=== PATIENT | female | born 1985 | race Caucasian/White ===

== ENCOUNTER 2019-04-25 08:41 | Emergency (ER) | payer BC ==
--- NOTE | 2019-04-25 08:52 | EDM.PDOC ---
ED HPI GENERAL MEDICAL PROBLEM - General Stated Complaint: HURT RT HAND Time Seen by Provider: 04/25/19 08:51 Source of Information: Reports: Patient - History of Present Illness INITIAL COMMENTS - FREE TEXT/NARRATIVE: HISTORY AND PHYSICAL: History of present illness: []Patient was walking a dog prior to arrival, the leash was wrapped around her right wrist which wrapped around a door frame as the dog accepted the home she now complains of right wrist pain, it appears that she may have had a hyperextension injury from the description No fever nausea vomiting chills sweats no chest pain shortness breath headache dizziness palpitation no bowel or urine symptoms Review of systems: As per history of present illness and below otherwise all systems reviewed and negative. Past medical history: As per history of present illness and as reviewed below otherwise noncontributory. Surgical history: As per history of present illness and as reviewed below otherwise noncontributory. Social history: No reported history of drug or alcohol abuse. Family history: As per history of present illness and as reviewed below otherwise noncontributory. Physical exam: HEENT: Atraumatic, normocephalic, pupils reactive, negative for conjunctival pallor or scleral icterus, mucous membranes moist, throat clear, neck supple, nontender, trachea midline. Lungs: Clear to auscultation, breath sounds equal bilaterally, chest nontender. Heart: S1S2, regular, negative for clicks, rubs, or JVD. Abdomen: Soft, nondistended, nontender. Negative for masses or hepatosplenomegaly. Negative for costovertebral tenderness. Pelvis: Stable nontender. Genitourinary: Deferred. Rectal: Deferred. Extremities: Atraumatic, negative for cords or calf pain. Neurovascular unremarkable. Right upper extremity shoulder elbow on affected tender with mild swelling about the wrist no open lesion using entire limb neurovascularly intact Neuro: Awake, alert, oriented. Cranial nerves II through XII unremarkable. Cerebellum unremarkable. Motor and sensory unremarkable throughout. Exam nonfocal. Diagnostics: []Right wrist 3 views Therapeutics: []Rest ice ibuprofen Splint Impression: [Right wrist injury ] Definitive disposition and diagnosis as appropriate pending reevaluation and review of above. right wrist Pain Score (Numeric/FACES): 7 - Related Data Allergies Allergy/AdvReac Type Severity Reaction Status Date / Time No Known Allergies Allergy Verified 04/25/19 08:58 Home Meds: Home Meds . [No Known Home Meds] 04/25/19 [History] ED ROS GENERAL - Review of Systems Review Of Systems: See Below ED EXAM, GENERAL - Physical Exam Exam: See Below Course - Vital Signs Last Recorded V/S: Last Vital Signs Temp 97.7 F 04/25/19 08:58 Pulse 83 04/25/19 08:58 Resp 18 04/25/19 08:58 BP 139/91 H 04/25/19 08:58 Pulse Ox 98 04/25/19 08:58 - Orders/Labs/Meds Orders: Active Orders 24 hr Category Date Time Status Wrist Comp Min 3V Rt [CR] Stat Exams 04/25/19 08:46 Taken Departure - Departure Time of Disposition: 09:36 Disposition: Home, Self-Care 01 Condition: Good Clinical Impression: Right wrist injury - Discharge Information Referrals: PCP,None [Primary Care Provider] - Additional Instructions: Rest Ice 20 minute interva 3 times daily as needed Ibuprofen 400 mg 3 times daily 7-10 days Splint for comfort follow-up with orthopedist or primary care, call phone number below to schedule appropriate follow-up [facility] [address] [place] [address] [facility] [address] [place] [address], [address] [place] [address] my orthopedic The following information is given to patients seen in the emergency department who are being discharged to home. This information is to outline your options for follow-up care. We provide all patients seen in our emergency department with a follow-up referral. The need for follow-up, as well as the timing and circumstances, are variable depending upon the specifics of your emergency department visit. If you don't have a primary care physician on staff, we will provide you with a referral. We always advise you to contact your personal physician following an emergency department visit to inform them of the circumstance of the visit and for follow-up with them and/or the need for any referrals to a consulting specialist. The emergency department will also refer you to a specialist when appropriate. This referral assures that you have the opportunity for follow-up care with a specialist. All of these measure are taken in an effort to provide you with optimal care, which includes your follow-up. Under all circumstances we always encourage you to contact your private physician who remains a resource for coordinating your care. When calling for follow-up care, please make the office aware that this follow-up is from your recent emergency room visit. If for any reason you are refused follow-up, please contact the [facility] emergency department at and asked to speak to the emergency department charge nurse. - My Orders Last 24 Hours: My Active Orders 04/25/19 08:46 Wrist Comp Min 3V Rt [CR] Stat - Assessment/Plan Last 24 Hours: My Active Orders 04/25/19 08:46 Wrist Comp Min 3V Rt [CR] Stat
[2019-04-25] MEDS ORDERED: Ibuprofen 400 MG Tab PO ONE (09:37)
--- NOTE | 2019-04-25 09:51 | CR ---
INDICATION: Right wrist pain today after walking dog. TECHNIQUE: Three-views of the right wrist. FINDINGS: The bones of the right wrist are intact. No fracture or dislocation. No destructive or osteolytic lesions. No radiopaque foreign bodies. IMPRESSION: No acute bone or joint abnormality. Dictated by Matt David MD @ Apr 25 2019 9:47AM Signed by Dr. Matt David @ Apr 25 2019 9:49AM
== END 2019-04-25 09:42 | disposition home or self-care (01) ==
LOC: MW.ED 08:41
DX: S69.91XA Unspecified injury of right wrist, hand and finger(s), initial encounter (principal); X50.9XXA Other and unspecified overexertion or strenuous movements or postures, initial encounter
CPT/HCPCS: 73110-26-RT; 73110-RT; 99282; 99283-25

== ENCOUNTER 2021-09-12 06:43 | Day surgery (SDC) | payer BC ==
[2021-09-10 09:29] LABS: BLOOD UREA NITROGEN,BUN 12 mg/dL (7.0-18.0); CARBON DIOXIDE,CO2 29.7 mmol/L (21.0-32.0); CHLORIDE,CL 104 mmol/L (98-107); GLUCOSE RANDOM 95 mg/dL (74-106); POTASSIUM,K 4.5 mmol/L (3.5-5.1); SODIUM,NA 142 mmol/L (136-145)
[~2021-09-12 06:43] MED LIST: Lactated Ringers 1,000 ML IV SCH; Sodium Chloride 0.9% 10 ML SDV IV PRN; Sodium Chloride 0.9% 10 ML Syringe FLUSH PRN; Sodium Chloride 0.9% 2.5 ML Syringe FLUSH PRN; ceFAZolin 2 GM in Premix Bag 1 BAG IV ONE
[2021-09-12] MEDS ORDERED: Midazolam 1 MG/ML 2 ML SDV ONE (06:48)
[2021-09-12] MEDS ORDERED: Propofol 200 MG/20 ML SDV ONE (06:48)
[2021-09-12] MEDS ORDERED: fentaNYL 250 MCG/5 ML SDV ONE (06:48)
[2021-09-12] MEDS ORDERED: Dexamethasone 4 MG/ML 5 ML MDV ONE (06:52)
[2021-09-12] MEDS ORDERED: Ondansetron 4 MG/2 ML SDV ONE (06:52)
[2021-09-12] MEDS ORDERED: Scopolamine 1.5 MG Transdermal Patch ONE (06:58)
[2021-09-12] MEDS ORDERED: Albuterol 0.083% 2.5 MG/3 ML Neb Soln NEB PRN (07:22)
[2021-09-12] MEDS ORDERED: fentaNYL 100 MCG/2 ML SDV IVPUSH PRN (07:22)
[2021-09-12] MEDS ORDERED: Metoclopramide 10 MG/2 ML SDV IVPUSH PRN (07:22)
[2021-09-12] MEDS ORDERED: Naloxone 0.4 MG/ML SDV IVPUSH PRN (07:22)
[2021-09-12] MEDS ORDERED: Morphine 2 MG/ML SYRINGE IVPUSH PRN ×2 (07:22→09:31)
[2021-09-12] MEDS ORDERED: Ondansetron 4 MG/2 ML SDV IVPUSH PRN ×2 (07:22→09:31)
--- NOTE | 2021-09-12 07:22 | PCM.PREANE ---
Preanesthetic Assessment - Anesthesia/Transfusion/Family Hx Anesthesia History: Prior Anesthesia Without Reaction Family History of Anesthesia Reaction: No Transfusion History: No Prior Transfusion(s) - Review of Systems General: No Symptoms Pulmonary: No Symptoms Cardiovascular: No Symptoms Gastrointestinal: No Symptoms Neurological: No Symptoms Other: Reports: Depression, Anxiety - Physical Assessment NPO Status Date: 09/12/21 NPO Status Time: 00:00 Vital Signs: Last Vital Signs Temp 97.9 F 09/12/21 06:57 Pulse 79 09/12/21 06:57 Resp 16 09/12/21 06:57 BP 125/80 09/12/21 06:57 Pulse Ox 98 09/12/21 06:57 Height: 5 ft 4 in Weight: 214 lb ASA Class: 2 Mental Status: Alert & Oriented x3 Airway Class: Mallampati = 2 Dentition: Reports: Normal Dentition Thyro-Mental Finger Breadths: 3 Mouth Opening Finger Breadths: 3 ROM/Head Extension: Full Lungs: Clear to Auscultation, Normal Respiratory Effort Cardiovascular: Regular Rate, Regular Rhythm - Lab Values: Laboratory Last Values WBC 7.17 K/uL (4.0-11.0) 09/10/21 09:00 RBC 4.71 M/uL (4.30-5.90) 09/10/21 09:00 Hgb 14.0 g/dL (12.0-16.0) 09/10/21 09:00 Hct 41.6 % (36.0-46.0) 09/10/21 09:00 MCV 88.3 fL (80.0-98.0) 09/10/21 09:00 MCH 29.7 pg (27.0-32.0) 09/10/21 09:00 MCHC 33.7 g/dL (31.0-37.0) 09/10/21 09:00 RDW Std Deviation 43.4 fl (28.0-62.0) 09/10/21 09:00 RDW Coeff of Shreyas 13 % (11.0-15.0) 09/10/21 09:00 Plt Count 271 K/uL (150-400) 09/10/21 09:00 MPV 9.70 fL (7.40-12.00) 09/10/21 09:00 Nucleated RBC % 0.0 /100WBC 09/10/21 09:00 Nucleated RBCs # 0 K/uL 09/10/21 09:00 Sodium 142 mmol/L (136-145) 09/10/21 09:00 Potassium 4.5 mmol/L (3.5-5.1) 09/10/21 09:00 Chloride 104 mmol/L (98-107) 09/10/21 09:00 Carbon Dioxide 29.7 mmol/L (21.0-32.0) 09/10/21 09:00 BUN 12 mg/dL (7.0-18.0) 09/10/21 09:00 Creatinine 0.7 mg/dL (0.6-1.0) 09/10/21 09:00 Est Cr Clr Drug Dosing 95.94 mL/min 09/10/21 09:00 Estimated GFR (MDRD) > 60.0 ml/min 09/10/21 09:00 Glucose 95 mg/dL (74-106) 09/10/21 09:00 Calcium 8.4 mg/dL (8.5-10.1) L 09/10/21 09:00 HCG, Qual NEGATIVE (NEG) 09/10/21 09:00 Blood Type A NEGATIVE 09/10/21 09:00 Antibody Screen NEGATIVE 09/10/21 09:00 - Allergies Allergies/Adverse Reactions: Allergies Allergy/AdvReac Type Severity Reaction Status Date / Time No Known Allergies Allergy Verified 09/12/21 07:04 - Anesthesia Plan Pre-Op Medication Ordered: Other (Scopolamine) - Acknowledgements Anesthesia Type Planned: General Anesthesia Pt an Appropriate Candidate for the Planned Anesthesia: Yes Alternatives and Risks of Anesthesia Discussed w Pt/Guardian: Yes Pt/Guardian Understands and Agrees with Anesthesia Plan: Yes PreAnesthesia Questionnaire HEENT History: Reports: None Cardiovascular History: Reports: None Respiratory History: Reports: Asthma Other Respiratory History: has not used inhaler for 2 years Gastrointestinal History: Reports: None Genitourinary History: Reports: Urinary Incontinence GENERAL STUDIES PROGRAM CHAIR History: Reports: Musculoskeletal History: Reports: Fracture Other Musculoskeletal History: hx of fx foot Neurological History: Reports: Migraines Other Neuro History: chronic migraines, states hormone related Psychiatric History: Reports: Anxiety Endocrine/Metabolic History: Reports: Obesity/BMI 30+ Hematologic History: Reports: Anemia Immunologic History: Reports: None Oncologic (Cancer) History: Reports: None Dermatologic History: Reports: None - Infectious Disease History Infectious Disease History: Reports: Chicken Pox - Past Surgical History Head Surgeries/Procedures: Reports: None HEENT Surgical History: Reports: Tonsillectomy Cardiovascular Surgical History: Reports: None Respiratory Surgical History: Reports: None GI Surgical History: Reports: None Female Surgical History: Reports: None Endocrine Surgical History: Reports: None Neurological Surgical History: Reports: None Musculoskeletal Surgical History: Reports: None Oncologic Surgical History: Reports: None Dermatological Surgical History: Reports: None - SUBSTANCE USE Tobacco Use Within Last Twelve Months: No Recreational Drug Use History: No - HOME MEDS Home Medications: Home Meds Aspirin/Acetaminophen/Caffeine [Excedrin Migraine Caplet] 1 tab PO ASDIRECTED PRN 09/06/21 [History] Escitalopram Oxalate [Lexapro] 20 mg PO BEDTIME 09/06/21 [History] Iron 65 mg PO DAILY 09/06/21 [History] - CURRENT (IN HOUSE) MEDS Current Meds: Current Medications Lactated Ringer's (Ringers, Lactated) 1,000 mls @ 125 mls/hr IV ASDIRECTED LIDA Last Admin: 09/12/21 07:04 Dose: 125 mls/hr Documented by: Sodium Chloride (Sodium Chloride 0.9% 10 Ml Syringe) 10 ml FLUSH ASDIRECTED PRN PRN Reason: Keep Vein Open Sodium Chloride (Sodium Chloride 0.9% 2.5 Ml Syringe) 2.5 ml FLUSH ASDIRECTED PRN PRN Reason: Keep Vein Open Sodium Chloride (Sodium Chloride 0.9% 10 Ml Sdv) 10 ml IV ASDIRECTED PRN PRN Reason: IV Use Discontinued Medications Dexamethasone (Dexamethasone 4 Mg/Ml 5 Ml Mdv) Confirm Administered Dose 20 mg .ROUTE .STK-MED ONE Stop: 09/12/21 06:53 Fentanyl (Fentanyl 250 Mcg/5 Ml Sdv) Confirm Administered Dose 250 mcg .ROUTE .STK-MED ONE Stop: 09/12/21 06:49 Cefazolin Sodium/Dextrose 2 gm (/ Premix) 50 mls @ 100 mls/hr IV ONETIME ONE Stop: 09/10/21 09:07 Cefazolin Sodium/Dextrose (Ancef 2 Gm/50 Ml) Confirm Administered Dose 50 mls @ as directed .ROUTE .STK-MED ONE Stop: 09/12/21 07:00 Lidocaine HCl (Lidocaine 1% 5 Ml Sdv) Confirm Administered Dose 5 ml .ROUTE .STK-MED ONE Stop: 09/12/21 06:52 Midazolam HCl (Midazolam 1 Mg/Ml 2 Ml Sdv) Confirm Administered Dose 2 mg .ROUTE .STK-MED ONE Stop: 09/12/21 06:49 Ondansetron HCl (Ondansetron 4 Mg/2 Ml Sdv) Confirm Administered Dose 4 mg .ROUTE .STK-MED ONE Stop: 09/12/21 06:53 Propofol (Propofol 200 Mg/20 Ml Sdv) Confirm Administered Dose 200 mg .ROUTE .STK-MED ONE Stop: 09/12/21 06:49 Scopolamine (Scopolamine 1.5 Mg Transdermal Patch) Confirm Administered Dose 1.5 mg .ROUTE .STK-MED ONE Stop: 09/12/21 06:59
[2021-09-12] MEDS ORDERED: Rocuronium Bromide 50 MG/5 ML Syringe ONE (07:34)
[2021-09-12] MEDS ORDERED: Octyl 2-Cyanoacrylate 1 Tube ONE ×2 (07:37→09:51)
[2021-09-12] MEDS ORDERED: Fluorescein 5 ML Vial ONE (07:37)
[2021-09-12] MEDS ORDERED: Sugammadex Sodium 200 MG/2 ML VIAL ONE (08:32)
[2021-09-12] MEDS ORDERED: Glycopyrrolate 0.2 MG/ML SDV ONE (08:32)
[2021-09-12] MEDS ORDERED: Ketorolac 30 MG/ML SDV ONE (08:43)
[2021-09-12] MEDS ORDERED: Ketorolac 30 MG/ML SDV IVPUSH ONE (09:31)
[2021-09-12] MEDS ORDERED: Acetaminophen/oxyCODONE 325-5 MG Tab PO PRN (09:31)
[2021-09-12] MEDS ORDERED: Promethazine 25 MG/ML SDV IM PRN (09:31)
[2021-09-12] MEDS ORDERED: Ketorolac 30 MG/ML SDV IVPUSH PRN (09:31)
--- NOTE | 2021-09-12 09:38 | PCM.OPNOTE ---
- General Post-Op/Procedure Note Date of Surgery/Procedure: 09/12/21 Operative Procedure(s): TVH,TVT and Cystoscopy. Pre Op Diagnosis: Bleeding ,RASHAUN Post-Op Diagnosis: Same Anesthesia Technique: General ET Tube Primary Surgeon: Jacob Anders EBL in mLs: 200 Complications: None Condition: Good Free Text/Narrative:: Intake & Output 09/11/21 09/12/21 09/12/21 22:59 06:59 14:59 Output Total 50 Balance -50
--- NOTE | 2021-09-12 09:48 | PCM.POSTAN ---
POST ANESTHESIA ASSESSMENT - MENTAL STATUS Mental Status: Alert, Oriented - VITAL SIGNS Vital Signs: Last Vital Signs Temp 97.9 F 09/12/21 06:57 Pulse 79 09/12/21 06:57 Resp 16 09/12/21 06:57 BP 125/80 09/12/21 06:57 Pulse Ox 98 09/12/21 06:57 - RESPIRATORY Respiratory Status: Respiratory Rate WNL, Airway Patent, O2 Saturation Stable - CARDIOVASCULAR CV Status: Pulse Rate WNL, Blood Pressure Stable - GASTROINTESTINAL GI Status: No Symptoms - POST OP HYDRATION Hydration Status: Adequate & Stable
--- NOTE | 2021-09-12 09:48 | PCM48HPAN ---
Post Anesthesia Note - EVALUATION WITHIN 48HRS OF ANESTHETIC Vital Signs in Normal Range: Yes Patient Participated in Evaluation: Yes Respiratory Function Stable: Yes Airway Patent: Yes Cardiovascular Function Stable: Yes Hydration Status Stable: Yes Pain Control Satisfactory: Yes Nausea and Vomiting Control Satisfactory: Yes Mental Status Recovered: Yes Vital Signs: Last Vital Signs Temp 97.9 F 09/12/21 06:57 Pulse 79 09/12/21 06:57 Resp 16 09/12/21 06:57 BP 125/80 09/12/21 06:57 Pulse Ox 98 09/12/21 06:57
[2021-09-12] MEDS: HYDROmorphone 1 MG/ML Syringe IVPUSH PRN ×2 (09:49→09:59)
[2021-09-12] MEDS: Acetaminophen/oxyCODONE 325-5 MG Tab PO PRN ×2 (11:48→20:39)
--- NOTE | 2021-09-12 13:18 | OR ---
SURGEON: Jacob Anders MD DATE OF PROCEDURE: 09/12/2021 PREOPERATIVE DIAGNOSES: 1. Menometrorrhagia. 2. Stress urinary incontinence. POSTOPERATIVE DIAGNOSES: 1. Menometrorrhagia. 2. Stress urinary incontinence. OPERATIONS PERFORMED: Total vaginal hysterectomy, bilateral salpingectomy preserving both ovaries, Solyx tension-free vaginal tape, and cystoscopy. PRIMARY SURGEON: Jacob Anders MD PUBLIC EVENTS FACILITIES RENTAL MANAGER: OR tech. ANESTHESIA: General endotracheal intubation, Dr. Manjinder Martinez and nurse wellness consultant. COMPLICATIONS: None. FINDINGS: Uterus is about 10-week size with a few fibroids. INDICATION FOR SURGERY: [place] referred to the admit note. PROCEDURE IN DETAIL: The patient was brought to the OR, properly identified. After adequate level of anesthesia, the patient placed in lithotomy position, was prepped and draped in sterile fashion as usual. A straight catheter was used to empty the bladder and a short weighted speculum placed in the vagina. A single-tooth tenaculum applied to the cervix. The cervix and uterus were pulled downward and forward, and using electrocautery, circular incision in the vaginal mucosa around the cervix was done. The posterior cul-de-sac was entered posteriorly with Junior scissors and the peritoneum and the vagina tacked posteriorly. The uterosacral ligament identified from both sides, clamped with a curved Zeppelin, transected, and suture ligated with 2-0 Vicryl pop-off. The same thing was done with the cardinal ligament and then the round ligament, and then the uterus delivered posteriorly and the superior pedicle clamped with 90-degree Zeppelin, the tubes on both sides included with the specimen, both ovaries preserved, and then the superior pedicle tied first with Endoloop and then a free tie. Inspection of the operative field showed no oozing, no bleeding from all the pedicles. We proceeded to close the vaginal cuff with 2-0 Vicryl interrupted [id number] sutures. Once we did that, then attention was paid to the anterior vaginal wall, and anterior vaginal wall about 1 inch beneath the rectum infiltrated with copious amount of normal saline and opened in the midline with electrocautery and dissected laterally in a tunneling fashion to accommodate the Solyx TVT. The Solyx TVT placed into place with a due amount of tension to elevate the urethrovesical angle. Once that was done, then the anterior incision in the vaginal cuff was closed with 2-0 Vicryl continuous interlocking for hemostasis. While we were doing that, we asked the Anesthesia personnel to give the patient fluorescein and then cystoscopy was performed. The bladder was intact. Both ureteric orifices seen with dye coming from both of them. Thus, the patency of both ureters and the integrity of the bladder confirmed. Once we did that, the procedure ended. The instrument and sponge count was correct. The patient tolerated the procedure well, went to recovery room stable general condition. MARYANN TYLER /[id number]
[2021-09-13] MEDS: Acetaminophen/oxyCODONE 325-5 MG Tab PO PRN (02:54)
[2021-09-13 06:41] LABS: BLOOD UREA NITROGEN,BUN 9 mg/dL (7.0-18.0); CARBON DIOXIDE,CO2 27.8 mmol/L (21.0-32.0); CHLORIDE,CL 104 mmol/L (98-107); GLUCOSE RANDOM 109 mg/dL (74-106); POTASSIUM,K 4.2 mmol/L (3.5-5.1); SODIUM,NA 141 mmol/L (136-145)
--- NOTE | 2021-09-13 09:31 | PCM.SURGPN ---
- General Info Date of Service: 09/13/21 POD#: 1 Functional Status: Reports: Pain Controlled - Review of Systems General: Reports: No Symptoms HEENT: Reports: No Symptoms Pulmonary: Reports: No Symptoms Cardiovascular: Reports: No Symptoms Gastrointestinal: Reports: No Symptoms Genitourinary: Reports: No Symptoms Musculoskeletal: Reports: No Symptoms Skin: Reports: No Symptoms Neurological: Reports: No Symptoms Psychiatric: Reports: No Symptoms - Patient Data Vitals - Most Recent: Last Vital Signs Temp 36.7 C 09/13/21 08:00 Pulse 63 09/13/21 08:00 Resp 14 09/13/21 08:00 BP 126/70 09/13/21 08:00 Pulse Ox 99 09/13/21 08:00 Weight - Most Recent: 97.069 kg I&O - Last 24 Hours: Intake & Output 09/12/21 09/13/21 09/13/21 22:59 06:59 14:59 Intake Total 700 Output Total 600 2000 Balance -600 -1300 Lab Results Last 24 Hrs: Laboratory Results - last 24 hr 09/13/21 09/13/21 Range/Units 05:46 05:46 WBC 11.04 H (4.0-11.0) K/uL RBC 3.96 L (4.30-5.90) M/uL Hgb 11.6 L (12.0-16.0) g/dL Hct 35.5 L (36.0-46.0) % MCV 89.6 (80.0-98.0) fL MCH 29.3 (27.0-32.0) pg MCHC 32.7 (31.0-37.0) g/dL RDW Std Deviation 44.2 (28.0-62.0) fl RDW Coeff of Shreyas 14 (11.0-15.0) % Plt Count 279 (150-400) K/uL MPV 10.00 (7.40-12.00) fL Neut % (Auto) 73.6 (48.0-80.0) % Lymph % (Auto) 19.4 (16.0-40.0) % [place] % (Auto) 6.7 (0.0-15.0) % Eos % (Auto) 0.2 (0.0-7.0) % Baso % (Auto) 0.1 (0.0-1.5) % Neut # (Auto) 8.1 H (1.4-5.7) K/uL Lymph # (Auto) 2.1 (0.6-2.4) K/uL [place] # (Auto) 0.7 (0.0-0.8) K/uL Eos # (Auto) 0.0 (0.0-0.7) K/uL Baso # (Auto) 0.0 (0.0-0.1) K/uL Nucleated RBC % 0.0 /100WBC Nucleated RBCs # 0 K/uL Sodium 141 (136-145) mmol/L Potassium 4.2 (3.5-5.1) mmol/L Chloride 104 (98-107) mmol/L Carbon Dioxide 27.8 (21.0-32.0) mmol/L BUN 9 (7.0-18.0) mg/dL Creatinine 0.8 (0.6-1.0) mg/dL Est Cr Clr Drug Dosing 83.95 mL/min Estimated GFR (MDRD) > 60.0 ml/min Glucose 109 H (74-106) mg/dL Calcium 8.1 L (8.5-10.1) mg/dL Med Orders - Current: Current Medications Lactated Ringer's (Ringers, Lactated) 1,000 mls @ 125 mls/hr IV ASDIRECTED [facility] Last Admin: 09/12/21 07:04 Dose: 125 mls/hr Documented by: Ketorolac Tromethamine (Ketorolac 30 Mg/Ml Sdv) 30 mg IVPUSH Q6H PRN PRN Reason: Pain (severe 7-10) Stop: 09/17/21 09:32 Morphine Sulfate (Morphine 2 Mg/Ml Syringe) 4 mg IVPUSH Q2H PRN PRN Reason: Pain (severe 7-10) Last Admin: 09/12/21 13:43 Dose: 4 mg Documented by: Ondansetron HCl (Ondansetron 4 Mg/2 Ml Sdv) 4 mg IVPUSH Q6H PRN PRN Reason: Nausea/Vomiting Oxycodone/Acetaminophen (Acetaminophen/Oxycodone 325-5 Mg Tab) 1 tab PO Q4H PRN PRN Reason: Pain (moderate 4-6) Last Admin: 09/13/21 07:55 Dose: 1 tab Documented by: Oxycodone/Acetaminophen (Acetaminophen/Oxycodone 325-5 Mg Tab) 2 tab PO Q4H PRN PRN Reason: Pain (moderate 4-6) Last Admin: 09/13/21 02:54 Dose: 2 tab Documented by: Promethazine HCl (Promethazine 25 Mg/Ml Sdv) 25 mg IM Q6H PRN PRN Reason: Nausea/Vomiting Sodium Chloride (Sodium Chloride 0.9% 10 Ml Syringe) 10 ml FLUSH ASDIRECTED PRN PRN Reason: Keep Vein Open Sodium Chloride (Sodium Chloride 0.9% 2.5 Ml Syringe) 2.5 ml FLUSH ASDIRECTED PRN PRN Reason: Keep Vein Open Sodium Chloride (Sodium Chloride 0.9% 10 Ml Sdv) 10 ml IV ASDIRECTED PRN PRN Reason: IV Use Discontinued Medications Albuterol (Albuterol 0.083% 2.5 Mg/3 Ml Neb Soln) 2.5 mg NEB ONETIME PRN PRN Reason: Wheezing Dexamethasone (Dexamethasone 4 Mg/Ml 5 Ml Mdv) Confirm Administered Dose 20 mg .ROUTE .STK-MED ONE Stop: 09/12/21 06:53 Droperidol (Droperidol 5 Mg/2 Ml Sdv) 0.625 mg IVPUSH ONETIME PRN PRN Reason: Nausea/Vomiting Fentanyl (Fentanyl 250 Mcg/5 Ml Sdv) Confirm Administered Dose 250 mcg .ROUTE .STK-MED ONE Stop: 09/12/21 06:49 Fentanyl (Fentanyl 100 Mcg/2 Ml Sdv) 50 mcg IVPUSH Q5M PRN PRN Reason: Pain (mild 1-3) Fluorescein Sodium (Fluorescein 5 Ml Vial) Confirm Administered Dose 5 ml .ROUTE .STK-MED ONE Stop: 09/12/21 07:38 Glycopyrrolate (Glycopyrrolate 0.2 Mg/Ml Sdv) Confirm Administered Dose 0.2 mg .ROUTE .STK-MED ONE Stop: 09/12/21 08:33 Hydromorphone HCl (Hydromorphone 1 Mg/Ml Syringe) 1 mg IVPUSH Q10M PRN PRN Reason: Pain (moderate 4-6) Last Admin: 09/12/21 09:59 Dose: 1 mg Documented by: Cefazolin Sodium/Dextrose 2 gm (/ Premix) 50 mls @ 100 mls/hr IV ONETIME ONE Stop: 09/10/21 09:07 Cefazolin Sodium/Dextrose (Ancef 2 Gm/50 Ml) Confirm Administered Dose 50 mls @ as directed .ROUTE .ST-MED ONE Stop: 09/12/21 07:00 Acetaminophen (Ofirmev 1000 Mg/100 Ml) Confirm Administered Dose 100 mls @ as directed .ROUTE .ST-MED ONE Stop: 09/12/21 08:35 Ketorolac Tromethamine (Ketorolac 30 Mg/Ml Sdv) Confirm Administered Dose 30 mg .ROUTE .ST-MED ONE Stop: 09/12/21 08:44 Ketorolac Tromethamine (Ketorolac 30 Mg/Ml Sdv) 30 mg IVPUSH ONETIME ONE Stop: 09/12/21 09:32 Last Admin: 09/12/21 10:49 Dose: Not Given Documented by: Lidocaine HCl (Lidocaine 1% 5 Ml Sdv) Confirm Administered Dose 5 ml .ROUTE .[facility]-MED ONE Stop: 09/12/21 06:52 Metoclopramide HCl (Metoclopramide 10 Mg/2 Ml Sdv) 10 mg IVPUSH ONETIME PRN PRN Reason: Nausea/Vomiting Midazolam HCl (Midazolam 1 Mg/Ml 2 Ml Sdv) Confirm Administered Dose 2 mg .ROUTE .ST-MED ONE Stop: 09/12/21 06:49 Morphine Sulfate (Morphine 2 Mg/Ml Syringe) 2 mg IVPUSH Q10M PRN PRN Reason: Pain (severe 7-10) Naloxone HCl (Naloxone 0.4 Mg/Ml Sdv) 0.1 mg IVPUSH ASDIRECTED PRN PRN Reason: Respiratory Depression Octyl Cyanoacrylate (Octyl 2-Cyanoacrylate 1 Tube) Confirm Administered Dose 1 applic .ROUTE .ST-MED ONE Stop: 09/12/21 07:38 Octyl Cyanoacrylate (Octyl 2-Cyanoacrylate 1 Tube) Confirm Administered Dose 1 applic .ROUTE .ST-MED ONE Stop: 09/12/21 09:52 Ondansetron HCl (Ondansetron 4 Mg/2 Ml Sdv) Confirm Administered Dose 4 mg .ROUTE .ST-MED ONE Stop: 09/12/21 06:53 Ondansetron HCl (Ondansetron 4 Mg/2 Ml Sdv) 4 mg IVPUSH ONETIME PRN PRN Reason: Nausea/Vomiting Propofol (Propofol 200 Mg/20 Ml Sdv) Confirm Administered Dose 200 mg .ROUTE .STK-MED ONE Stop: 09/12/21 06:49 Rocuronium [place] (Rocuronium [place] 50 Mg/5 Ml Syringe) Confirm Administered Dose 50 mg .ROUTE .STK-MED ONE Stop: 09/12/21 07:35 Scopolamine (Scopolamine 1.5 Mg Transdermal Patch) Confirm Administered Dose 1.5 mg .ROUTE .STK-MED ONE Stop: 09/12/21 06:59 Last Admin: 09/12/21 12:12 Dose: Not Given Documented by: Sugammadex Sodium (Sugammadex Sodium 200 Mg/2 Ml Vial) Confirm Administered Dose 200 mg .ROUTE .STK-MED ONE Stop: 09/12/21 08:33 - Exam Wound/Incisions: Healing Well General: Alert, Oriented HEENT: Pupils Equal Neck: Supple Lungs: Clear to Auscultation, Normal Respiratory Effort Cardiovascular: Regular Rate, Regular Rhythm GI/Abdominal Exam: Normal Bowel Sounds, Soft, Non-Tender, No Organomegaly, No Distention, No Abnormal Bruit, No Mass, Pelvis Stable Extremities: Normal Inspection, Normal Range of Motion, Non-Tender, No Pedal Edema, Normal Capillary Refill Skin: Warm, Dry, Intact Neurological: No New Focal Deficit Psy/Mental Status: Alert, Normal Affect, Normal Mood Sepsis Event Note - Evaluation Sepsis Screening Result: No Definite Risk - Focused Exam Vital Signs: Vital Signs Temp Pulse Resp BP Pulse Ox 09/13/21 08:00 36.7 C 63 14 126/70 99 09/13/21 03:41 36.7 C 83 18 119/56 L 96 09/12/21 23:19 37.3 C 85 16 105/56 L 94 L - Problem List Review Problem List Initiated/Reviewed/Updated: Yes - My Orders Last 24 Hours: Active Orders 24 hr Category Date Time Status Patient Status [ADT] Routine ADT 09/12/21 09:32 Active Antiembolic Devices [RC] PER UNIT ROUTINE Care 09/12/21 09:32 Active Notify Provider Vital Signs [RC] ASDIRECTED Care 09/12/21 09:32 Active Oxygen Therapy [RC] ASDIRECTED Care 09/12/21 09:32 Active RT Incentive Spirometry [RC] Q2HWA Care 09/12/21 09:32 Active Up With Assistance [RC] PER UNIT ROUTINE Care 09/12/21 09:32 Active Up ad Eve [RC] PER UNIT ROUTINE Care 09/12/21 09:32 Active Urinary Catheter Removal [RC] Per Unit Routine Care 09/12/21 09:32 Active Vital Signs [RC] PER UNIT ROUTINE Care 09/12/21 09:32 Active Regular Diet [DIET] Diet 09/12/21 Lunch Active Acetaminophen/oxyCODONE [Percocet 325-5 MG] Med 09/12/21 09:31 Active 1 tab PO Q4H PRN Acetaminophen/oxyCODONE [Percocet 325-5 MG] Med 09/12/21 09:31 Active 2 tab PO Q4H PRN Ketorolac [Toradol] Med 09/12/21 09:31 Active 30 mg IVPUSH Q6H PRN Morphine Med 09/12/21 09:31 Active 4 mg IVPUSH Q2H PRN Ondansetron [Zofran] Med 09/12/21 09:31 Active 4 mg IVPUSH Q6H PRN Promethazine [Phenergan] Med 09/12/21 09:31 Active 25 mg IM Q6H PRN Peripheral IV Discontinue [OM.PC] Routine Oth 09/12/21 09:32 Ordered Sequential Compression Device [OM.PC] Per Unit Routine Oth 09/12/21 09:32 Ordered Resuscitation Status Routine Resus Stat 09/12/21 09:31 Ordered Medication Orders Lactated Ringer's (Ringers, Lactated) 1,000 mls @ 125 mls/hr IV ASDIRECTED [facility] Last Admin: 09/12/21 07:04 Dose: 125 mls/hr Documented by: TAB Ketorolac Tromethamine (Ketorolac 30 Mg/Ml Sdv) 30 mg IVPUSH Q6H PRN PRN Reason: Pain (severe 7-10) Stop: 09/17/21 09:32 Morphine Sulfate (Morphine 2 Mg/Ml Syringe) 4 mg IVPUSH Q2H PRN PRN Reason: Pain (severe 7-10) Last Admin: 09/12/21 13:43 Dose: 4 mg Documented by: DIOMEDES Ondansetron HCl (Ondansetron 4 Mg/2 Ml Sdv) 4 mg IVPUSH Q6H PRN PRN Reason: Nausea/Vomiting Oxycodone/Acetaminophen (Acetaminophen/Oxycodone 325-5 Mg Tab) 1 tab PO Q4H PRN PRN Reason: Pain (moderate 4-6) Last Admin: 09/13/21 07:55 Dose: 1 tab Documented by: HARIKA Oxycodone/Acetaminophen (Acetaminophen/Oxycodone 325-5 Mg Tab) 2 tab PO Q4H PRN PRN Reason: Pain (moderate 4-6) Last Admin: 09/13/21 02:54 Dose: 2 tab Documented by: Admin: 09/12/21 20:39 Dose: 2 tab Documented by: Admin: 09/12/21 11:48 Dose: 2 tab Documented by: DIOMEDES Promethazine HCl (Promethazine 25 Mg/Ml Sdv) 25 mg IM Q6H PRN PRN Reason: Nausea/Vomiting Sodium Chloride (Sodium Chloride 0.9% 10 Ml Syringe) 10 ml FLUSH ASDIRECTED PRN PRN Reason: Keep Vein Open Sodium Chloride (Sodium Chloride 0.9% 2.5 Ml Syringe) 2.5 ml FLUSH ASDIRECTED PRN PRN Reason: Keep Vein Open Sodium Chloride (Sodium Chloride 0.9% 10 Ml Sdv) 10 ml IV ASDIRECTED PRN PRN Reason: IV Use - Assessment Assessment (Free Text/Narrative):: Status post total vaginal hysterectomy with TVT postoperative day #1 patient is doing well afebrile her H&H is stable she is ambulatory she is on regular diet she is voiding without any problem there is minimum vaginal bleeding - Plan Plan (Free Text/Narrative):: The patient would be discharged home the post hysterectomy instruction is given to the patient there is no restriction on her diet prescription for Narco 5/325 for postoperative pain is given and she have an appointment to come to the office 1 week of her discharge for late postoperative examination.
== END 2021-09-13 11:25 | disposition home or self-care (01) ==
LOC: MW.SDS 06:43 → MW.MS 09:49 → MW.SDS 09-13 11:25
PROVIDERS: ATTEND Obstetrics & Gynecology
DX: N87.1 Moderate cervical dysplasia (principal); N39.3 Stress incontinence (female) (male); D50.9 Iron deficiency anemia, unspecified; E66.9 Obesity, unspecified; F32.A Depression, unspecified; Z79.82 Long term (current) use of aspirin; Z79.899 Other long term (current) drug therapy; Z98.890 Other specified postprocedural states; Z68.37 Body mass index [BMI] 37.0-37.9, adult
CPT/HCPCS: 36415; 57288; 58262; 80048; 84703; 85025; 85027; 86850; 86900; 86901; 88307; A9270; C1771; J0131; J0690; J1100; J1170; J2250; J2270; J2704; J3010; J3490; J7030; J7120; 00944; J1885; J2405